=== PATIENT | female | born 2000 | race Caucasian/White ===

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

== ENCOUNTER 2018-02-02 23:18 | Emergency (ER) | payer OTHER ==
[~2018-02-02] VITALS: Ht 160 cm; Wt 72.0 kg
[~2018-02-02 23:18] MED LIST changes: +PHENERGAN25 MG RE
[2018-02-02 23:58] LABS: HEMOGLOBIN 11.9 g/dl (12.0-16.0); IMMATURE GRANULOCYTES 0.2 % (0.0-5.0); MEAN CELL VOLUME 93.1 fL CALC (80.0-100.0); MEAN CORPUSCULAR HGB 29.2 pG CALC (26.0-32.0); MEAN CORPUSCULAR HGB CONC 31.3 g/L CALC (32.0-36.0); NEUT# 5.91 thou/uL (2.00-7.15); RED BLOOD COUNT 4.08 mill/uL (4.20-5.60)
[2018-02-03 00:05] LABS: BARBITURATES NEGATIVE (NEGATIVE); COCAINE NEGATIVE (NEGATIVE); METHADONE NEGATIVE (NEGATIVE); OXCYCODONE NEGATIVE (NEGATIVE); TETRAHYDROCANNABIONOL POSITIVE (NEGATIVE); TRICYLIC ANTIDEPRESSANTS NEGATIVE (NEGATIVE)
[2018-02-03 00:18] LABS: ALKALINE PHOSPHATASE 74 u/l (38-126); ANION GAP 15 (6-22 (CALC)); BILIRUBIN, TOTAL 0.4 mg/dL (0.0-1.4); BUN 12 mg/dL (8-21); BUN/CREATININE RATIO 20 (12-20 (CALC)); CARBON DIOXIDE 27 mmol/l (22-30); CHLORIDE 109 mmol/l (95-108); CREATININE 0.6 mg/dL (0.5-1.0); ETHYL ALCOHOL 0 mg/dl (0-30); GFR > 60 ML/MIN (>=60 (CALC)); GFR FOR AFR.AMER. > 60 ML/MIN (>=60 (CALC)); POTASSIUM 3.9 mmol/l (3.5-5.1); SGOT/AST 22 u/l (14-36); SGPT/ALT 25 u/l (9-52); SODIUM 147 mmol/l (137-146)
[2018-02-03 00:19] LABS: ALBUMIN 4.1 g/dL (3.2-5.0); TOTAL PROTEIN 7.6 g/dL (6.3-8.2)
[2018-02-03 01:30] VITALS: BP 116/70
== END 2018-02-03 01:30 | disposition home or self-care (01) ==
LOC: ED 23:18
PROVIDERS: Emergency Medicine
DX: M25.572 Pain in left ankle and joints of left foot (principal); M25.571 Pain in right ankle and joints of right foot; F19.10 Other psychoactive substance abuse, uncomplicated; F17.210 Nicotine dependence, cigarettes, uncomplicated

== ENCOUNTER 2018-03-16 17:55 | Emergency (ER) | payer OTHER ==
[~2018-03-16] VITALS: Ht 160 cm; Wt 52.0 kg
[2018-03-16] MEDS ORDERED: CYCLOBENZAPR5 MG PO (18:28)
[2018-03-16] MEDS ORDERED: MOTRIN400 MG PO (18:28)
[2018-03-16 18:42] VITALS: BP 125/77
== END 2018-03-16 18:42 | disposition home or self-care (01) ==
LOC: ED 17:55
DX: M54.6 Pain in thoracic spine (principal); F17.210 Nicotine dependence, cigarettes, uncomplicated

== ENCOUNTER 2018-06-27 13:52 | Emergency (ER) | payer OTHER ==
[~2018-06-27] VITALS: Ht 160 cm; Wt 70.0 kg
[~2018-06-27 13:52] MED LIST changes: +CYCLOBENZAPR5 MG PO
[2018-06-27 14:40] VITALS: BP 114/66
[2018-06-27 15:03] LABS: HEMATOCRIT 39.3 % (37.0-47.0); HEMOGLOBIN 12.7 g/dl (12.0-16.0); IMMATURE GRANULOCYTES 0.4 % (0.0-5.0); MEAN CELL VOLUME 88.1 fL CALC (80.0-100.0); MEAN CORPUSCULAR HGB 28.5 pG CALC (26.0-32.0); MEAN CORPUSCULAR HGB CONC 32.3 g/L CALC (32.0-36.0); NEUT# 6.05 thou/uL (2.00-7.15); RED BLOOD COUNT 4.46 mill/uL (4.20-5.60); RED CELL DISTRI WIDTH 15.6 % (11.5-15.5)
[2018-06-27 15:13] LABS: ANION GAP 17 (6-22 (CALC)); BUN 12 mg/dL (7-17); BUN/CREATININE RATIO 18 (12-20 (CALC)); CARBON DIOXIDE 26 mmol/l (22-30); CHLORIDE 97 mmol/l (95-108); CREATININE 0.6 mg/dL (0.5-1.0); GFR > 60 ML/MIN (>=60 (CALC)); GFR FOR AFR.AMER. > 60 ML/MIN (>=60 (CALC)); POTASSIUM 3.5 mmol/l (3.5-5.1)
[2018-06-27 15:16] LABS: SODIUM 136 mmol/l (137-146)
== END 2018-06-27 14:40 | disposition left against medical advice (07) ==
LOC: ED 13:52
PROVIDERS: Family Medicine
DX: J02.9 Acute pharyngitis, unspecified (principal); R50.9 Fever, unspecified; E11.9 Type 2 diabetes mellitus without complications; F17.210 Nicotine dependence, cigarettes, uncomplicated; F19.10 Other psychoactive substance abuse, uncomplicated; L98.9 Disorder of the skin and subcutaneous tissue, unspecified; R23.4 Changes in skin texture; Z91.19 Patient's noncompliance with other medical treatment and regimen; M79.10 Myalgia, unspecified site; R59.9 Enlarged lymph nodes, unspecified; R53.1 Weakness

== ENCOUNTER 2019-02-02 07:51 | Emergency (ER) | payer OTHER ==
[~2019-02-02] VITALS: Ht 160 cm; Wt 72.7 kg
[2019-02-02 08:45] LABS: IMMATURE GRANULOCYTES 1.6 % (0.0-5.0); MEAN CELL VOLUME 89.5 fL CALC (80.0-100.0); MEAN CORPUSCULAR HGB 29.5 pG CALC (26.0-32.0); NEUT# 7.69 thou/uL (2.00-7.15); RED BLOOD COUNT 3.32 mill/uL (4.20-5.60); RED CELL DISTRI WIDTH 13.3 % (11.5-15.5)
[2019-02-02 08:48] LABS: HEMATOCRIT 29.7 % (37.0-47.0); HEMOGLOBIN 9.8 g/dl (12.0-16.0)
[2019-02-02 08:56] LABS: ANION GAP 14 (6-22 (CALC)); BUN 12 mg/dL (7-17); BUN/CREATININE RATIO 19 (12-20 (CALC)); CARBON DIOXIDE 22 mmol/l (22-30); CHLORIDE 99 mmol/l (95-108); CREATININE 0.6 mg/dL (0.5-1.0); GFR > 60 ML/MIN (>=60 (CALC)); GFR FOR AFR.AMER. > 60 ML/MIN (>=60 (CALC)); POTASSIUM 2.9 mmol/l (3.5-5.1); SGOT/AST 23 u/l (14-36); SODIUM 132 mmol/l (137-146); TOTAL PROTEIN 6.5 g/dL (6.3-8.2)
[2019-02-02 08:57] LABS: BILIRUBIN, TOTAL 1.3 mg/dL (0.0-1.4)
[2019-02-02 08:58] LABS: ALBUMIN 2.9 g/dL (3.2-5.0); ALKALINE PHOSPHATASE 175 u/l (38-126)
[2019-02-02 10:21] LABS: URINE BILIRUBIN - DIPSTICK SMALL (NEGATIVE); URINE BLOOD DIPSTICK SMALL (NEGATIVE); URINE GLUCOSE - DIPSTICK NEGATIVE (NEGATIVE); URINE KETONE 40 mg/dL (NEGATIVE); URINE LEUK ESTERASE TRACE (NEGATIVE); URINE NITRITE - DIPSTICK NEGATIVE (Negative); URINE PH 5.5 (4.5-8.0); URINE PROTEIN - DIPSTICK TRACE mg/dL (NEG-TRACE)
[2019-02-02 10:22] LABS: URINE COLOR AMBER; URINE RBC 0-2 RBC/hpf (0-5); URINE WBC 0-2 WBC/hpf (0-5)
[2019-02-02 10:23] LABS: BARBITURATES NEGATIVE (NEGATIVE); COCAINE NEGATIVE (NEGATIVE); METHADONE NEGATIVE (NEGATIVE); OXCYCODONE POSITIVE (NEGATIVE); TETRAHYDROCANNABIONOL POSITIVE (NEGATIVE); TRICYLIC ANTIDEPRESSANTS NEGATIVE (NEGATIVE); URINE EPITHELIAL CELLS FEW EPI/hpf (0-FEW)
[2019-02-02 11:38] VITALS: BP 81/52
== END 2019-02-02 11:45 | disposition short-term general hospital (02) ==
LOC: ED 07:51
PROVIDERS: Emergency Medicine
DX: J02.0 Streptococcal pharyngitis (principal); B95.61 Methicillin susceptible Staphylococcus aureus infection as the cause of diseases classified elsewhere; F11.10 Opioid abuse, uncomplicated; F15.10 Other stimulant abuse, uncomplicated; F12.10 Cannabis abuse, uncomplicated; R50.9 Fever, unspecified; R00.0 Tachycardia, unspecified; E87.6 Hypokalemia; I95.89 Other hypotension; R53.1 Weakness; R05 Cough

== ENCOUNTER 2019-08-31 | Emergency (ER) | payer SELFPAY | END 2019-08-31 19:40 | disposition left against medical advice (07) | DRG 392 | DX: R10.30 Lower abdominal pain, unspecified (principal); F19.10 Other psychoactive substance abuse, uncomplicated; E11.9 Type 2 diabetes mellitus without complications; F17.210 Nicotine dependence, cigarettes, uncomplicated; L98.9 Disorder of the skin and subcutaneous tissue, unspecified; R23.4 Changes in skin texture; Z91.19 Patient's noncompliance with other medical treatment and regimen ==

== ENCOUNTER 2020-01-09 10:09 | Emergency (ER) | payer SELFPAY ==
[~2020-01-09] VITALS: Ht 160 cm; Wt 75.0 kg
[2020-01-09 10:46] VITALS: BP 100/56
== END 2020-01-09 10:46 | disposition left against medical advice (07) | DRG 894 ==
LOC: ED 10:09
DX: F19.10 Other psychoactive substance abuse, uncomplicated (principal); E11.9 Type 2 diabetes mellitus without complications; B19.20 Unspecified viral hepatitis C without hepatic coma; F17.200 Nicotine dependence, unspecified, uncomplicated; Z91.19 Patient's noncompliance with other medical treatment and regimen

== ENCOUNTER 2020-01-20 10:04 | Inpatient (IN) | payer SELFPAY ==
[~2020-01-20] VITALS: Ht 160 cm; Wt 75.4 kg
[2020-01-20] VITALS (7 sets, daily range): BP systolic 106–113; BP diastolic 55–69
--- NOTE | 2020-01-20 10:04 | NUR ---
PT TO ROOM 11 VIA EMS FOR BEDSIDE TRIAGE
--- NOTE | 2020-01-20 10:20 | NUR ---
PT RESTING IV ACCESS OBTAINED MEDICATED ORDERED, IVF INFUSING PT CRYING AND TEARY EYED TALKING ABOUT RELAPSING, JUST GOT OUT OF DETOX, WANT US TO CALL HER MOM, PHONE NUMBER AND NAME PROVIDED BU PT
--- NOTE | 2020-01-20 10:47 | NUR ---
PT DROWSY BUT RESPONDS TO REPEATED VERBAL STIMULI, SPEECH IS SLURRED AT TIMES BUT ANSWERS APPORPIATELY, DOES NOD OFF EASILY, WARM BLANKETS PROVIDED PER PT REQUEST. AWARE MORE NARCAN ORDERED
[2020-01-20 10:55] LABS: HEMOGLOBIN 11.5 g/dl (12.0-16.0); IMMATURE GRANULOCYTES 0.3 % (0.0-5.0); MEAN CELL VOLUME 87.9 fL CALC (80.0-100.0); MEAN CORPUSCULAR HGB 27.3 pG CALC (26.0-32.0); MEAN CORPUSCULAR HGB CONC 31.1 g/dL CAL (32.0-36.0); NEUT# 3.19 thou/uL (2.00-7.15); RED BLOOD COUNT 4.21 mill/uL (4.20-5.60); RED CELL DISTRI WIDTH 14.4 % (11.5-15.5)
--- NOTE | 2020-01-20 11:08 | NUR ---
DIOR WHITEHEAD AT POISON CONTROL, CHECK TYLENOL, ASA AND ETOH LEVELS WELL ANS LIVER ENZYMES AND PERFROM TEST, NARCAN GTT IF REQUIRED, NOTIFIED.
--- NOTE | 2020-01-20 11:09 | NUR ---
VS REAMIN STABLE SECOND DOSE OF NARCAN GIVEN ORDERED, PT RESTLESS HOLLERS OUT RANDOMLY, EASILY VISDIBLE FROM NURSES STATION FOR SAFETY
[2020-01-20 11:16] LABS: HCG SERUM/URINE (NEG/POS) NEGATIVE (NEGATIVE)
--- NOTE | 2020-01-20 11:22 | NUR ---
ATTEMPTED TO CALL PT MOTHER MULTIPLE TIME REQUESTED AT PHONE NUMBER PROVIDED BY PT, BUSY SIGNAL EACH TIME
[2020-01-20 11:25] LABS: BILIRUBIN, TOTAL 0.8 mg/dL (0.0-1.4); BUN 22 mg/dL (7-17); BUN/CREATININE RATIO 35 (12-20 (CALC)); CARBON DIOXIDE 23 mmol/l (22-30); CHLORIDE 102 mmol/l (95-108); CPK 533 u/l (30-165); CREATININE 0.6 mg/dL (0.5-1.0); ETHYL ALCOHOL 0 mg/dl (0-30); GFR > 60 ML/MIN (>=60 (CALC)); GFR FOR AFR.AMER. > 60 ML/MIN (>=60 (CALC)); LIPASE 42 u/l (23-300); MAGNESIUM 1.9 mg/dL (1.6-2.3); SODIUM 138 mmol/l (137-146)
[2020-01-20 11:31] LABS: ALBUMIN 4.5 g/dL (3.2-5.0); ALKALINE PHOSPHATASE 74 u/l (38-126); ANION GAP 17 (6-22 (CALC)); POTASSIUM 3.5 mmol/l (3.5-5.1); SGOT/AST 726 u/l (14-36)
[2020-01-20 11:50] LABS: URINE BLOOD DIPSTICK NEGATIVE (NEGATIVE); URINE COLOR YELLOW; URINE GLUCOSE - DIPSTICK NEGATIVE (NEGATIVE); URINE KETONE NEGATIVE (NEGATIVE); URINE LEUK ESTERASE NEGATIVE (NEGATIVE); URINE NITRITE - DIPSTICK NEGATIVE (Negative); URINE PROTEIN - DIPSTICK TRACE mg/dL (NEG-TRACE); URINE SPECIFIC GRAVITY >=1.030; URINE UROBILINOGEN - DIPSTICK 0.2 E.U./dL (0.2)
[2020-01-20 11:54] LABS: URINE BILIRUBIN - DIPSTICK NEGATIVE (NEGATIVE)
--- NOTE | 2020-01-20 12:10 | NUR ---
INITIATED NARCAN GTT ORDERED. PT RESPONDS TO VERBAL AND PAINFUL STIMULI FOR A MOMENT.
--- NOTE | 2020-01-20 12:14 | NUR ---
PT RESPONSIVE AND THRASHING ABOUT
--- NOTE | 2020-01-20 12:14 | NUR ---
AT BEDSIDE FOR TLC PLACEMENT
[2020-01-20 12:58] LABS: ALBUMIN 3.7 g/dL (3.2-5.0); ALKALINE PHOSPHATASE 69 u/l (38-126); ANION GAP 10 (6-22 (CALC)); BILIRUBIN, TOTAL 0.7 mg/dL (0.0-1.4); BUN 19 mg/dL (7-17); BUN/CREATININE RATIO 36 (12-20 (CALC)); CARBON DIOXIDE 23 mmol/l (22-30); CHLORIDE 106 mmol/l (95-108); CREATININE 0.5 mg/dL (0.5-1.0); GFR > 60 ML/MIN (>=60 (CALC)); GFR FOR AFR.AMER. > 60 ML/MIN (>=60 (CALC)); POTASSIUM 3.7 mmol/l (3.5-5.1); SGOT/AST 541 u/l (14-36); SODIUM 135 mmol/l (137-146); TOTAL PROTEIN 6.7 g/dL (6.3-8.2)
--- NOTE | 2020-01-20 13:15 | NUR ---
PT HAS PERIODS OF AWAKE, CRYING, MOANING AND TOSSING IN BED THEN PERIDOS OF SLEEPING WITH STABLE VS ENTIRE TIME. NARCAN GTT INFUSING ORDERED. IVF INFUSING WELL. CALL CASON WITHIN REACH.
--- NOTE | 2020-01-20 13:40 | NUR ---
PT AWAKE CURSING AT STAFF STATING SHE HAS TO FUCKING PISS AND SHE CAN'T DO IT ON THAT FUCKING EMERY AND SHE NEEDS TO GET UP TO PEE. DISCUSSED REPSECT AND APPROPRIATE BEHAVIOR TOWARD STAFF, PT APOLOGIZES THEN STATES I JUST WANT MY MOMMY.
--- NOTE | 2020-01-20 13:59 | NUR ---
PT ADMITTED TO ICU BED 3 FROM ED VIA STRETCHER FOR DRUG OVERDOSE. PT AROUSES TO TACTILE STIMULI. PT TRANSFERRED FROM STRETCHER TO BED VIA STAFF. TOLERATED WELL. WT 166.5LBS ON BED SCALE. PT SR ON TELEMETRY, HR 88. DENIES CP SOB OR DISTRESS AT THIS TIME. RESPIRATIONS EVEN/UNLABORED, SA02@99% RA, LS CLEAR THROUGHOUT, ABDOMEN SOFT, NON-TENDER, BSX4 ACTIVE. PT NOTED WITH MULTIPLE SCABS TO FACE. D51/2NS INFUSING@125ML/HR TO SHMUEL. NONS/S OF INFILTRATION AT SITE. R FEMORAL/TL/SL FLUSHES WITHOUT DIFFICULTY WITH GOOD BLOOD RETURN. PT ORIENTED TO ROOM, UNIT AND CALL LIGHT . WILL MONITOR.
--- NOTE | 2020-01-20 14:05 | NUR ---
NARCAN GTT COMPLETE, PT DOZING BUT SROUSE TO VERBAL STIMULI ADN MORE COOPERATIVE AT THIS TIME.
--- NOTE | 2020-01-20 14:15 | NUR ---
PT TRANSFERRED TO ICU BED 3 ON TELE, ALL BELONGINGS SENT WITH PATIENT.
--- NOTE | 2020-01-20 14:32 | NUR ---
TOMY MICHAEL AT BEDSIDE FOR ASSESSMENT AND TO DISCUSS PLAN OF CARE. NO NEW ORDERS NOTED AT THIS TIME. WILL MONITOR.
--- NOTE | 2020-01-20 15:45 | NUR ---
PT REMAINS SLEEPING, AROUSES WITH TACTILE/PAINFAL STIMULI. NO DISTRESS NOTED
--- NOTE | 2020-01-20 16:37 | NUR ---
DEPUTY ARRIVED TO BEDSIDE, PT SLEEPING, DEPUTY LEFT.
--- NOTE | 2020-01-20 18:03 | NUR ---
PT RESTING WITH EYES CLOSED, RESPIRATIONS EVEN/UNLABORED, SA02@99%RA. NO DISTRESS NOTED AT THIS TIME. CALL LIGHT IN REACH.
--- NOTE | 2020-01-20 18:29 | NUR ---
PT AWAKE, CRYING OUT ASKING FOR NURSE TO NOTIFY HER MOTHER OR FATHER. REQUEST GRANTED. FATHER NOTIFIED, MESSAGE LEFT. MOTHER'S PHONE NOT IN SERVICE. DR. KATHLEEN NOTIFIED TO GIVE UPDATE.
--- NOTE | 2020-01-20 18:34 | NUR ---
PT UPGRADED TO REGULAR DIET. PT ASKED THIS NURSE TO NOTIFY BINTA HOUSTON @[phone]. CONTACT MADE, BINTA STATED HE WOULD TRY CONTACTING PT MOTHER. PT GIVEN PITCHER OF ICE WATER AND UPDATED.
--- NOTE | 2020-01-20 18:45 | NUR ---
PT , BINTA HOUSTON CALLED. PT GAVE PERMISSION TO UPDate on condition. UPDATE GIVEN. HE STATED HE WAS UNABLE TO MAKE CONTACT WITH PT MOTHER OR FATHER AT THIS TIME.
--- NOTE | 2020-01-20 19:00 | NUR ---
PATIENT WAS ASSESSED. EXPLAINED POC. SHE WAS SITTING UP CRYING. REQUESTED TO HAVE SOMETHING TO EAT, REQUESTED HR BAG OF CLOTHES. SHMUEL IV INTACT, D4 1/2 NS POTASSIUM 20 MEQ INFUSING. R-FEMORAL TRIPLE LUMEN INTACT. AFEBRILE. PT DOES STATE, "I'M PROBABLY GOING TO END UP LEAVING TONIGHT."
--- NOTE | 2020-01-20 19:31 | NUR ---
PATIENT'S BOYFRIEND CALLED, WAS CURSING AND YELLING THAT WE DO NOT ALLOW HIM TO SPEAK ON THE PHONE WITH THE PATIENT, I HAVE NOTIFIED HIM I WILL FIND THE PATIENT PHONE AND THAN HE WILL BE ABLE TO SPEAK TO PATIENT, I GAVE HIM UPDATES. PROVIDED A HOT MEAL TO PATIENT. SHE IS SITTING NOW ON THE SIDE OF THE BED. PT CONTINUES TO CRY, REPORTS SHE FEELS GUILTY, SHE ALSO LAUGHS AT TIMES.
--- NOTE | 2020-01-20 19:50 | NUR ---
I CALLED AND SPOKE TO DR KATHLEEN TO NOTIFY HIM THAT PATIENT WOULD LIKE TO LEAVE AMA. PATIENT HAS BEEN EXPLAINED WHAT IT MEANS TO LAVE AMA. PT IS UPSET AND IS BECOMING AGITATED.
--- NOTE | 2020-01-20 19:58 | NUR ---
I HAVE VALLED PATIENT'S BOYFRIEND AND TRANSFERRED IT TO PATIENT PHONE, PATIENT IS NOW TALKING TO BOYFRIEND.
--- NOTE | 2020-01-20 20:17 | NUR ---
PATIENT REPORTS HER BOYFRIEND IS SENDING A FRIEND TO PICK HER UP, PATIENT WAS ABLE TO DRESS HERSELF, SHE WAS ABLE TO VOID ON BSC WITHOUT ANY DIFFUCULTY. PT HAD SIGNED AMA FORM ALREADY, I DID INFORM AND EDUCATE PATIENT ON RISKS OF HER HEALTH IF SHE LEFT AMA, ALSO NOTIFIED HER IF SHE HAD AN EMERGENCY SHE COULD COME BACK TO THE ER, PATIENT AGREES AND UNDERSTANDS. SHMUEL IV WAS REMOVED, PT TOLERATED WELL, PRESSURE WAS HELD TO STOP THE BLEEDING. R-FEMORAL TRIPLE LUMEN CENTRAL LINE WAS ALSO REMOVED, STITCHES WERE SUCCESSFULLY REMOVED WITHOUT ANY DIFFICULTY, PATIENT ABLE TO TOLERATE REMOVAL, PRESSURE WAS HELD, NO BLEEDING AT SITE. DRESSING PLACED OVER SITE. TELEMETRY REMOVED, VS WERE TAKEN AND BP WAS WNL. O2 SATS WERE 100%. SR ON TELEMETRY WITH HEART RATE IN THE 80'S. PATIENT WAS ABLE TO WALK WITH STEADY GAIT. I WALKED PATIENT TO ER ENTRANCE, HER RIDE WAS NOT IN SIGHT, PLACED A PHONE CALL FROM ER ENTRANCE FRON DESK TO HER BOYFRINED, HE REPORTED HE WAS GOING TO SEND A RIDE TO PICK HER UP, PT WAITED ABOUT 20-25 MINUTES, SHE BECAME AGITATED AND REPORTED SHE WAS NOT GOING TO WAIT ANYMORE AND WALKED AWAY.
--- NOTE | 2020-01-20 21:33 | NUR ---
PATIENT'S FATHER RETURNED CALL BACK, ASKED ABOUT HIS DAUGHTER, I UPDATED HIM. FATHER WAS CONCERNED AND REPORTED PT IS SUPPOSE TO BE GOING TO REHAB.
--- NOTE | 2020-01-20 21:35 | NUR ---
CHARLEY FROM POISON CONTROL GUAN OR UPDATES ON PATIENT, I NOTIFIED HER OF PT LEAVING AMA.
== END 2020-01-20 20:17 | disposition left against medical advice (07) | DRG 918 ==
LOC: ED 10:04 → ED-I 11:40 → ED 12:03 → ICU 12:04
PROVIDERS: Family Medicine; ADMIT Internal Medicine; ATTEND Internal Medicine
PROC: 06HY33Z Insertion of Infusion Device into Lower Vein, Percutaneous Approach (ICD-10-PCS; principal; 2020-01-20)
DX: T40.1X1A Poisoning by heroin, accidental (unintentional), initial encounter (principal); F11.10 Opioid abuse, uncomplicated; F15.10 Other stimulant abuse, uncomplicated; F13.10 Sedative, hypnotic or anxiolytic abuse, uncomplicated; F12.10 Cannabis abuse, uncomplicated; F19.10 Other psychoactive substance abuse, uncomplicated; B19.20 Unspecified viral hepatitis C without hepatic coma; F17.200 Nicotine dependence, unspecified, uncomplicated; Z20.828 Contact with and (suspected) exposure to other viral communicable diseases

== ENCOUNTER 2020-09-18 22:20 | Emergency (ER) | payer SELFPAY ==
[2020-09-18] MEDS ORDERED: NAPROXEN220 MG PO (22:58)
[2020-09-18 23:08] VITALS: BP 117/74
== END 2020-09-18 23:07 | disposition left against medical advice (07) | DRG 392 ==
LOC: ED 22:20
DX: R10.31 Right lower quadrant pain (principal); E11.9 Type 2 diabetes mellitus without complications; B19.20 Unspecified viral hepatitis C without hepatic coma; F17.200 Nicotine dependence, unspecified, uncomplicated; Z91.19 Patient's noncompliance with other medical treatment and regimen

== ENCOUNTER 2021-05-17 20:18 | Emergency (ER) | payer OTHER ==
[~2021-05-17] VITALS: Ht 160 cm; Wt 71.0 kg
[~2021-05-17 20:18] MED LIST changes: +NAPROXEN220 MG PO
[2021-05-17 22:30] VITALS: BP 109/66
[2021-05-17 23:02] LABS: URINE BLOOD DIPSTICK LARGE (NEGATIVE); URINE GLUCOSE - DIPSTICK NEGATIVE (NEGATIVE); URINE KETONE NEGATIVE (NEGATIVE); URINE LEUK ESTERASE TRACE (NEGATIVE); URINE PROTEIN - DIPSTICK 30 mg/dL (NEG-TRACE); URINE SPECIFIC GRAVITY >=1.030; URINE UROBILINOGEN - DIPSTICK 0.2 E.U./dL (0.2)
[2021-05-17 23:07] LABS: URINE BILIRUBIN - DIPSTICK SMALL (NEGATIVE); URINE COLOR DK. YELLOW; URINE NITRITE - DIPSTICK POSITIVE (Negative)
[2021-05-17 23:11] LABS: URINE BACTERIA MODERATE hpf; URINE SQUAMOUS EPITHELIAL CELL FEW EPI/hpf (0-FEW); URINE WBC 50-100 WBC/hpf (0-5)
== END 2021-05-17 23:35 | disposition left against medical advice (07) | DRG 556 ==
LOC: ED 20:18
PROVIDERS: Emergency Medicine
DX: M25.561 Pain in right knee (principal); M25.461 Effusion, right knee; E11.9 Type 2 diabetes mellitus without complications; B19.20 Unspecified viral hepatitis C without hepatic coma; F17.210 Nicotine dependence, cigarettes, uncomplicated; Z91.19 Patient's noncompliance with other medical treatment and regimen; V03.90XA Pedestrian on foot injured in collision with car, pick-up truck or van, unspecified whether traffic or nontraffic accident, initial encounter

== ENCOUNTER 2022-08-31 22:10 | Emergency (ER) | payer OTHER ==
[~2022-08-31] VITALS: Ht 160 cm; Wt 63.6 kg
[2022-08-31 22:56] VITALS: BP 105/62
[2022-08-31 23:00] VITALS: BP 105/62
[2022-09-01 00:01] LABS: URINE BILIRUBIN - DIPSTICK SMALL (NEGATIVE); URINE BLOOD DIPSTICK LARGE (NEGATIVE); URINE COLOR YELLOW; URINE GLUCOSE - DIPSTICK NEGATIVE (NEGATIVE); URINE KETONE TRACE mg/dL (NEGATIVE); URINE LEUK ESTERASE NEGATIVE (NEGATIVE); URINE NITRITE - DIPSTICK NEGATIVE (Negative); URINE PH 5.5 (4.5-8.0); URINE PROTEIN - DIPSTICK 100 mg/dL (NEG-TRACE); URINE SPECIFIC GRAVITY >=1.030
[2022-09-01 00:16] LABS: URINE BACTERIA MODERATE hpf; URINE MUCUS MANY hpf (NONE-FEW); URINE SQUAMOUS EPITHELIAL CELL FEW EPI/hpf (0-FEW)
[2022-09-01] MEDS ORDERED: KEFLEX500 MG PO (00:34)
[2022-09-01 00:39] VITALS: BP 105/62
== END 2022-09-01 00:49 | disposition home or self-care (01) | DRG 832 ==
LOC: ED 22:10
PROVIDERS: Family Medicine
DX: O23.40 Unspecified infection of urinary tract in pregnancy, unspecified trimester (principal); N39.0 Urinary tract infection, site not specified; O99.320 Drug use complicating pregnancy, unspecified trimester; F19.10 Other psychoactive substance abuse, uncomplicated; O24.319 Unspecified pre-existing diabetes mellitus in pregnancy, unspecified trimester; O99.330 Smoking (tobacco) complicating pregnancy, unspecified trimester; F17.200 Nicotine dependence, unspecified, uncomplicated; O98.419 Viral hepatitis complicating pregnancy, unspecified trimester; B19.20 Unspecified viral hepatitis C without hepatic coma; Z3A.00 Weeks of gestation of pregnancy not specified

== ENCOUNTER 2023-06-17 11:47 | Emergency (ER) | payer SELFPAY ==
[~2023-06-17] VITALS: Ht 160 cm; Wt 76.2 kg
[~2023-06-17 11:47] MED LIST changes: +KEFLEX500 MG PO
[2023-06-17 12:21] LABS: URINE BLOOD DIPSTICK Trace-lysed (NEGATIVE); URINE GLUCOSE - DIPSTICK Negative (NEGATIVE); URINE KETONE Trace mg/dL (NEGATIVE); URINE NITRITE - DIPSTICK Negative (Negative); URINE PH 6.5 (4.5-8.0); URINE PROTEIN - DIPSTICK Negative (NEG-TRACE); URINE UROBILINOGEN - DIPSTICK 0.2 E.U./dL (0.2)
[2023-06-17 12:23] LABS: URINE BACTERIA RARE hpf; URINE COLOR Yellow; URINE LEUK ESTERASE Small (NEGATIVE); URINE RBC 0-2 RBC/hpf (0-5)
[2023-06-17] MEDS ORDERED: OMNICEF300 M1 PO (14:07)
== END 2023-06-17 14:12 | disposition left against medical advice (07) | DRG 690 ==
LOC: ED 11:47
PROVIDERS: Family Medicine
DX: N39.0 Urinary tract infection, site not specified (principal); E11.9 Type 2 diabetes mellitus without complications; B19.20 Unspecified viral hepatitis C without hepatic coma; Z72.0 Tobacco use

== ENCOUNTER 2023-06-19 19:30 | Emergency (ER) | payer SELFPAY ==
[~2023-06-19] VITALS: Ht 160 cm; Wt 76.0 kg
[~2023-06-19 19:30] MED LIST changes: +OMNICEF300 M1 PO
[2023-06-19 21:51] VITALS: BP 111/71
[2023-06-19 22:00] VITALS: BP 119/72
[2023-06-19] MEDS ORDERED: PHENAZOPYRIDINE HCL 100 MG/TAB PO ONE (22:05)
[2023-06-19] MEDS ORDERED: SODIUM CHLORIDE 0.9% 1,000 ML IV ONE (22:05)
[2023-06-19 22:14] LABS: URINE BILIRUBIN - DIPSTICK Negative (NEGATIVE); URINE BLOOD DIPSTICK Small (NEGATIVE); URINE GLUCOSE - DIPSTICK Negative (NEGATIVE); URINE KETONE Negative (NEGATIVE); URINE NITRITE - DIPSTICK Negative (Negative); URINE PH 5.5 (4.5-8.0); URINE PROTEIN - DIPSTICK Negative (NEG-TRACE); URINE SPECIFIC GRAVITY 1.025; URINE UROBILINOGEN - DIPSTICK 0.2 E.U./dL (0.2)
[2023-06-19 22:15] VITALS: BP 102/61
[2023-06-19 22:16] LABS: URINE COLOR Yellow; URINE LEUK ESTERASE Small (NEGATIVE)
[2023-06-19 22:29] LABS: URINE BACTERIA FEW hpf; URINE SQUAMOUS EPITHELIAL CELL MANY EPI/hpf (0-FEW)
[2023-06-19 22:45] VITALS: BP 106/63
[2023-06-19 22:50] LABS: BASO% 0.3 % (0-3); EOS% 1.9 % (0-8); HEMATOCRIT 32.3 % (37.0-47.0); IMMATURE GRANULOCYTES 0.2 % (0.0-5.0); LYMPH% 30.1 % (15-41); MEAN CELL VOLUME 91.2 fL CALC (80.0-100.0); MEAN CORPUSCULAR HGB 28.2 pG CALC (26.0-32.0); NEUT# 3.77 thou/uL (2.00-7.15); NEUT% 58.5 % (42-76); RED BLOOD COUNT 3.54 mill/uL (4.20-5.60); RED CELL DISTRI WIDTH 13.4 % (11.5-15.5)
[2023-06-19 23:03] LABS: ALKALINE PHOSPHATASE 69 u/l (38-126); BUN 9 mg/dL (7-17); BUN/CREATININE RATIO 14 (12-20 (CALC)); CHLORIDE 105 mmol/l (95-108); CREATININE 0.6 mg/dL (0.5-1.0); GFR FOR AFR.AMER. > 60 ML/MIN (>=60 (CALC)); GFR OTHER RACES > 60 ML/MIN (>=60 (CALC)); SGOT/AST 21 u/l (14-36); TOTAL PROTEIN 8.1 g/dL (6.3-8.2)
[2023-06-19 23:06] LABS: ALBUMIN 4.2 g/dL (3.2-5.0); ANION GAP 13 (6-22 (CALC)); BILIRUBIN, TOTAL 0.3 mg/dL (0.02-1.3); CARBON DIOXIDE 27 mmol/l (22-30); POTASSIUM 4.7 mmol/l (3.5-5.1); SODIUM 140 mmol/l (137-146)
[2023-06-20] MEDS ORDERED: KETOROLAC TROMETHAMINE 30 MG/ML SDV ONE (00:43)
[2023-06-20 06:16] VITALS: BP 118/64
== END 2023-06-20 06:24 | disposition home or self-care (01) | DRG 690 ==
LOC: ED 19:30
PROVIDERS: Emergency Medicine
DX: N39.0 Urinary tract infection, site not specified (principal); K59.00 Constipation, unspecified; E11.9 Type 2 diabetes mellitus without complications; F19.10 Other psychoactive substance abuse, uncomplicated; F17.290 Nicotine dependence, other tobacco product, uncomplicated

== ENCOUNTER 2023-07-05 14:40 | Emergency (ER) | payer BC ==
[~2023-07-05] VITALS: Ht 160 cm; Wt 73.6 kg
[2023-07-05] MEDS ORDERED: QUETIAPINE FUM100 MG PO (16:02)
[2023-07-05] MEDS ORDERED: GABAPENTIN100 MG PO (16:02)
[2023-07-05] MEDS ORDERED: QUETIAPINE FUMA25 MG PO (16:03)
[2023-07-05] MEDS ORDERED: BUPRENORPHIN8 MG SL (16:04)
[2023-07-05] MEDS ORDERED: LEXAPRO10 MG PO (16:05)
[2023-07-05 16:43] LABS: URINE BILIRUBIN - DIPSTICK Negative (NEGATIVE); URINE BLOOD DIPSTICK Moderate (NEGATIVE); URINE GLUCOSE - DIPSTICK Negative (NEGATIVE); URINE KETONE Negative (NEGATIVE); URINE LEUK ESTERASE Negative (NEGATIVE); URINE NITRITE - DIPSTICK Negative (Negative); URINE PH 5.5 (4.5-8.0); URINE PROTEIN - DIPSTICK Negative (NEG-TRACE); URINE SPECIFIC GRAVITY >=1.030; URINE UROBILINOGEN - DIPSTICK 0.2 E.U./dL (0.2)
[2023-07-05 16:46] LABS: URINE COLOR Yellow
[2023-07-05 16:56] LABS: URINE SQUAMOUS EPITHELIAL CELL FEW EPI/hpf (0-FEW); URINE WBC 0-2 WBC/hpf (0-5)
[2023-07-05 17:02] VITALS: BP 114/69
[2023-07-05 17:15] VITALS: BP 104/73
[2023-07-05 17:23] LABS: BASO% 0.4 % (0-3); EOS% 3.2 % (0-8); HEMATOCRIT 32.4 % (37.0-47.0); HEMOGLOBIN 9.9 g/dl (12.0-16.0); IMMATURE GRANULOCYTES 0.1 % (0.0-5.0); LYMPH% 29.1 % (15-41); MEAN CELL VOLUME 87.8 fL CALC (80.0-100.0); MEAN CORPUSCULAR HGB 26.8 pG CALC (26.0-32.0); MEAN CORPUSCULAR HGB CONC 30.6 g/dL CAL (32.0-36.0); MONO% 12.1 % (2-13); NEUT# 4.07 thou/uL (2.00-7.15); NEUT% 55.1 % (42-76); RED BLOOD COUNT 3.69 mill/uL (4.20-5.60); RED CELL DISTRI WIDTH 13.5 % (11.5-15.5)
[2023-07-05 17:30] VITALS: BP 111/62
[2023-07-05] MEDS ORDERED: DOXYCYCLINE HYCLATE 100 MG in SODIUM CHLORIDE 0.9% 100 ML IV ONE (17:30)
[2023-07-05 18:09] LABS: ANION GAP 16 (6-22 (CALC)); CARBON DIOXIDE 22 mmol/l (22-30); CHLORIDE 108 mmol/l (95-108); POTASSIUM 4.7 mmol/l (3.5-5.1); SODIUM 140 mmol/l (137-146)
[2023-07-05] MEDS ORDERED: DOXYCYCLINE HYCLATE 100 MG/CAP PO ONE (18:10)
[2023-07-05 18:14] LABS: BUN 15 mg/dL (7-17); BUN/CREATININE RATIO 23 (12-20 (CALC)); CREATININE 0.7 mg/dL (0.5-1.0); GFR FOR AFR.AMER. > 60 ML/MIN (>=60 (CALC)); GFR OTHER RACES > 60 ML/MIN (>=60 (CALC))
[2023-07-05 18:46] VITALS: BP 125/71
[2023-07-05 19:00] VITALS: BP 107/65
[2023-07-05 19:20] VITALS: BP 107/65
== END 2023-07-05 19:20 | disposition left against medical advice (07) | DRG 690 ==
LOC: ED 14:40
PROVIDERS: Emergency Medicine; Nurse Practitioner
DX: N39.0 Urinary tract infection, site not specified (principal); E11.9 Type 2 diabetes mellitus without complications; F17.290 Nicotine dependence, other tobacco product, uncomplicated; Z53.29 Procedure and treatment not carried out because of patient's decision for other reasons; Z87.440 Personal history of urinary (tract) infections